=== PATIENT | female | born 1980 | race Caucasian/White ===

== ENCOUNTER 2017-01-13 05:38 | Day surgery (SDC) | payer OTHER ==
[~2017-01-13] VITALS: Ht 175.3 cm; Wt 103.4 kg
[~2017-01-13 05:38] MED LIST: ADIPEX-P37.5 MG PO; IMITREX100 MG PO; METFORMIN HCL500 MG PO; MULTIPLE VITAM1 EACH PO; NOHOMEMEDS; Vicodin,Lortab 5/500 PO; ZOLOFT50 MG PO
[2017-01-13 06:16] VITALS: BP 120/61
[2017-01-13 06:17] LABS: MCV 87.2 FL (83-99)
[2017-01-13 09:41] VITALS: BP 109/60
[2017-01-13 10:17] VITALS: BP 110/55
[2017-01-18 12:52] LABS: INTERNAL CONTROL VALID? YES
== END 2017-01-13 09:25 | disposition home or self-care (01) ==
LOC: SDC 05:38
PROVIDERS: Otolaryngology
PROC: 0CTPXZZ Resection of Tonsils, External Approach (ICD-10-PCS; principal; 2017-01-13)
DX: J35.01 Chronic tonsillitis (principal); E28.2 Polycystic ovarian syndrome; E66.9 Obesity, unspecified; Z68.33 Body mass index [BMI] 33.0-33.9, adult; J45.909 Unspecified asthma, uncomplicated; F41.9 Anxiety disorder, unspecified
CPT/HCPCS: 84703; 85014; 85018; 88304; 94640; J0330; J1100; J2405; J2765; J3010; J7120